=== PATIENT | male | born 1995 | race Caucasian/White ===

== ENCOUNTER 2017-08-12 07:38 | Emergency (ER) | payer OTHER ==
[2017-08-12] MEDS ORDERED: NS 0.9% 1000 ML* 1,000 ML IV ONE (07:49)
[2017-08-12 08:20] LABS: Mean Corpuscular HGB Conc 35 g/dl (31-36)
[2017-08-12 08:25] LABS: Hematocrit 48 % (42-52); Hemoglobin 16.9 g/dl (14.0-18.0); Mean Corpuscular Hemoglobin 30 pg (27-31); Mean Corpuscular Volume 86 fL (80-94); Mean Platelet Volume 9 um3 (7.4-10.4); Red Blood Count 5.61 10^6/ul (4.0-5.4); Red Cell Distribution Width 13 % (10.5-15); White Blood Count 10.2 10^3/ul (3.5-10.8)
[2017-08-12 08:26] LABS: Comments Flag Yes
[2017-08-12 08:37] LABS: Albumin 4.6 g/dL (3.2-5.2); BUN/Creatinine Ratio 14.4 (8-20); C Reactive Protein 6.46 mg/L (< 5.00); Calcium 9.9 mg/dL (8.6-10.3); EGFR African American 115.9 (>60); EGFR Non-African American 90.2 (>60); Globulin 2.4 g/dL (2-4); Potassium 3.9 mmol/L (3.5-5.0); Total Bilirubin 0.8 mg/dL (0.2-1.0)
[2017-08-12] MEDS ORDERED: Acetaminophen TAB* 325 MG PO ONE (10:05)
[2017-08-12 10:24] LABS: Urine Bilirubin Negative (Negative); Urine Glucose Negative (Negative); Urine Nitrite Negative (Negative)
[2017-08-12] MEDS ORDERED: Iohexol 300* (CONTRAST) 10 ML SDV IV ONE (12:15)
--- NOTE | 2017-08-12 13:03 | RAD ---
INDICATION: 21-year-old with abdominal pain pain. Diarrhea and vomiting for 18 hours. COMPARISON: None TECHNIQUE: Axial source images were obtained from the hemidiaphragms to the symphysis pubis following administration of oral and intravenous contrast. 100 mL Omnipaque 300 was utilized. Coronal and sagittal reconstructed images were acquired. Lung bases: The lung bases are clear. Liver: There is mild hepatomegaly with hepatic steatosis. There are no masses. There is no ductal dilatation. Gallbladder: There are no calcified gallstones. There is no evidence of wall thickening or pericholecystic fluid. Spleen: The spleen is normal in size. There are no masses. Pancreas: There is no focal pancreatic mass or ductal dilatation. Adrenal glands: There is no evidence of adrenal mass. Kidneys: The kidneys are normal in size and position. There are prompt nephrograms and there is prompt excretion bilaterally. There are no renal parenchymal masses. There is no evidence of nephrolithiasis. Adenopathy: There is no evidence of adenopathy by size criteria. Fluid collections: There are no free or localized fluid collections. Vessels:There are no significant atherosclerotic changes involving the aorta. There is no focal aneurysm. The iliac vessels are normal in caliber. The IVC appears normal. GI tract: There are no acute CT bowel findings. There is no obstruction. The stomach and small bowel appear normal. The lower GI tract is normal. The cecum, ileocecal valve, and terminal ileum appear normal. The appendix is visualized and appear normal. Pelvic organs: The prostate and seminal vesicles appear normal Bladder: There are no bladder masses. Abdominal and pelvic soft tissues: The extraperitoneal abdominal and pelvic soft tissues appear normal.. Osseous structures: There are no acute osseous findings. Other: None IMPRESSION: HEPATIC STEATOSIS, OTHERWISE NEGATIVE.
--- NOTE | 2017-08-12 13:10 | ED ---
Abdominal Pain/Male - HPI Summary HPI Summary: aournd navel and along B/L lower ab - also moreso on the Rt then Lt/ Diarrhea. Pain and diarrhea started last night around 20:00 - tried eating crackers but made it worse. Denies nausea, vomiting. Ab pain feels "like a pulled muscle", cramping - pain is colicky. Has not tried anything for pain as he feels okay at the moment. Denies CP/sob, flank pain, dysuria, testicular pain/swelling. No sick contacts - History of Current Complaint Chief Complaint: EDAbdPain Stated Complaint: SHARP ABD PAIN Time Seen by Provider: 08/12/17 08:41 Hx Obtained From: Patient, Family/Installation Superintendent - mom Pain Intensity: 4 - Allergies/Home Medications Allergies/Adverse Reactions: Allergies Allergy/AdvReac Type Severity Reaction Status Date / Time Penicillins Allergy Severe Hives Verified 07/29/17 13:31 PMH/Surg Hx/FS Hx/Imm Hx Previously Healthy: Yes Endocrine/Hematology History: Denies: Hx Diabetes Cardiovascular History: Denies: Hx Hypertension, Hx Pacemaker/ICD History: Denies: Hx Renal Disease Sensory History: Denies: Hx Hearing Aid Psychiatric History: Denies: Hx Eating Disorder, Hx Panic Disorder, Hx of Violent Episodes Against Others - Immunization History Immunizations Up to Date: Yes Infectious Disease History: No Infectious Disease History: Denies: Traveled Outside the [place] in Last 30 Days - Family History Known Family History: Negative: Cardiac Disease, Hypertension, Diabetes - family history of seasonal allergies - Social History Alcohol Use: Occasionally Substance Use Type: Reports: None Smoking Status (MU): Current Some Day Smoker Type: Cigarettes, Smokeless Tobacco Physical Exam Vital Signs On Initial Exam: Initial Vitals Temp Pulse Resp BP Pulse Ox 98.5 F 88 20 110/71 99 08/12/17 07:44 08/12/17 07:44 08/12/17 07:44 08/12/17 07:44 08/12/17 07:44 Abdomen Description: Positive: No Organomegaly, Soft, Other: - Rt side of ab is TTP- RUQ, MID REGION, RLQ; LLQ is also TTP - no rebounding or referred pain; equivocal psoas/obturator. Negative: CVA Tenderness (R), CVA Tenderness (L), Distended, Guarding, Hernia @ Male Genital Exam: Positive: normal genitalia, no hernia. Negative: bleeding, epididymal tenderness, erythema, scrotum tenderness (R), scrotum tenderness (L) , testicular tenderness (R), testicular tenderness (L) Musculoskeletal: Positive: Normal, Strength/ROM Intact Neurological: Positive: Normal, Sensory/Motor Intact, Alert, Oriented to Person Place, Time, CN Intact II-III Psychiatric: Positive: Normal - Cam Coma Scale Coma Scale Total: 15 Diagnostics - Vital Signs Vital Signs Temp Pulse Resp BP Pulse Ox 08/12/17 12:10 98.7 F 69 16 101/62 98 08/12/17 09:45 100.6 F 96 17 97/65 97 08/12/17 08:32 72 99 08/12/17 08:30 97/45 08/12/17 07:44 98.5 F 88 20 110/71 99 - Laboratory Lab Results: Lab Results 08/12/17 08/12/17 08/12/17 Range/Units 08:06 08:06 08:06 WBC (3.5-10.8) 10^3/ul RBC (4.0-5.4) 10^6/ul Hgb (14.0-18.0) g/dl Hct (42-52) % MCV (80-94) fL MCH (27-31) pg MCHC (31-36) g/dl RDW (10.5-15) % Plt Count (150-450) 10^3/ul MPV (7.4-10.4) um3 Neut % (Auto) (38-83) % Lymph % (Auto) (25-47) % [place] % (Auto) (1-9) % Eos % (Auto) (0-6) % Baso % (Auto) (0-2) % Absolute Neuts (auto) (1.5-7.7) 10^3/ul Absolute Lymphs (auto) (1.0-4.8) 10^3/ul Absolute Monos (auto) (0-0.8) 10^3/ul Absolute Eos (auto) (0-0.6) 10^3/ul Absolute Basos (auto) (0-0.2) 10^3/ul Absolute Nucleated RBC 10^3/ul Nucleated RBC % INR (Anticoag Therapy) 0.94 (0.77-1.02) APTT 28.8 (26.0-36.3) seconds Sodium 134 (133-145) mmol/L Potassium 3.9 (3.5-5.0) mmol/L Chloride 102 (101-111) mmol/L Carbon Dioxide 22 (22-32) mmol/L Anion Gap 10 (2-11) mmol/L BUN 15 (6-24) mg/dL Creatinine 1.04 (0.67-1.17) mg/dL Est GFR ( Amer) 115.9 (>60) Est GFR (Non-Af Amer) 90.2 (>60) BUN/Creatinine Ratio 14.4 (8-20) Glucose 101 H (70-100) mg/dL Lactic Acid 1.6 (0.5-2.0) mmol/L Calcium 9.9 (8.6-10.3) mg/dL Total Bilirubin 0.80 (0.2-1.0) mg/dL AST 26 (13-39) U/L ALT 77 H (7-52) U/L Alkaline Phosphatase 99 (34-104) U/L C-Reactive Protein 6.46 H (< 5.00) mg/L Total Protein 7.0 (6.4-8.9) g/dL Albumin 4.6 (3.2-5.2) g/dL Globulin 2.4 (2-4) g/dL Albumin/Globulin Ratio 1.9 (1-3) Lipase 20 (11.0-82.0) U/L Urine Color Urine Appearance Urine pH (5-9) Ur Specific [place] (1.010-1.030) Urine Protein (Negative) Urine Ketones (Negative) Urine Blood (Negative) Urine Nitrate (Negative) Urine Bilirubin (Negative) Urine Urobilinogen (Negative) Ur Leukocyte Esterase (Negative) Urine Glucose (Negative) 08/12/17 08/12/17 Range/Units 08:06 08:45 WBC 10.2 (3.5-10.8) 10^3/ul RBC 5.61 H (4.0-5.4) 10^6/ul Hgb 16.9 (14.0-18.0) g/dl Hct 48 (42-52) % MCV 86 (80-94) fL MCH 30 (27-31) pg MCHC 35 (31-36) g/dl RDW 13 (10.5-15) % Plt Count 180 (150-450) 10^3/ul MPV 9 (7.4-10.4) um3 Neut % (Auto) 86.9 H (38-83) % Lymph % (Auto) 5.7 L (25-47) % [place] % (Auto) 6.2 (1-9) % Eos % (Auto) 0.8 (0-6) % Baso % (Auto) 0.4 (0-2) % Absolute Neuts (auto) 8.9 H (1.5-7.7) 10^3/ul Absolute Lymphs (auto) 0.6 L (1.0-4.8) 10^3/ul Absolute Monos (auto) 0.6 (0-0.8) 10^3/ul Absolute Eos (auto) 0.1 (0-0.6) 10^3/ul Absolute Basos (auto) 0 (0-0.2) 10^3/ul Absolute Nucleated RBC 0.01 10^3/ul Nucleated RBC % 0.1 INR (Anticoag Therapy) (0.77-1.02) APTT (26.0-36.3) seconds Sodium (133-145) mmol/L Potassium (3.5-5.0) mmol/L Chloride (101-111) mmol/L Carbon Dioxide (22-32) mmol/L Anion Gap (2-11) mmol/L BUN (6-24) mg/dL Creatinine (0.67-1.17) mg/dL Est GFR ( Amer) (>60) Est GFR (Non-Af Amer) (>60) BUN/Creatinine Ratio (8-20) Glucose (70-100) mg/dL Lactic Acid (0.5-2.0) mmol/L Calcium (8.6-10.3) mg/dL Total Bilirubin (0.2-1.0) mg/dL AST (13-39) U/L ALT (7-52) U/L Alkaline Phosphatase (34-104) U/L C-Reactive Protein (< 5.00) mg/L Total Protein (6.4-8.9) g/dL Albumin (3.2-5.2) g/dL Globulin (2-4) g/dL Albumin/Globulin Ratio (1-3) Lipase (11.0-82.0) U/L Urine Color Yellow Urine Appearance Clear Urine pH 5.0 (5-9) Ur Specific [place] 1.012 (1.010-1.030) Urine Protein Negative (Negative) Urine Ketones Negative (Negative) Urine Blood Negative (Negative) Urine Nitrate Negative (Negative) Urine Bilirubin Negative (Negative) Urine Urobilinogen Negative (Negative) Ur Leukocyte Esterase Negative (Negative) Urine Glucose Negative (Negative) Result Diagrams: 08/12/17 08:06 08/12/17 08:06 Lab Statement: Any lab studies that have been ordered have been reviewed, and results considered in the medical decision making process. Re-Evaluation - Re-Evaluation First Eval Change: Improved - pain and fever improved w/ tylenol Abdominal Pain Fem Course/Dx - Course Course Of Treatment: Pt here w/ abrupt onset ab discomfort with diarrhea last night - continued today so came here. Had 1 x vomiting after receiving IV contrast - no issues since and no nausea. Labs, vitals and CT scan are unremarkable for life threatening pathology. He does have mildly elevated ALT and hepatic steatosis - explained this is typically a chronic issues that may have been caused by unhealthy eating - encouraged f/u w/ PCP to discuss changes/ monitor LFT's and sx as well as provide further education about nutrition therapy for this condition. Danger s/sx of when to return to ED reviewed w/ pt and mom. Pt could not provide stool sample here but will try at home and f/u w/ PCP who may order cx's outpt. Encouraged hydration/rest. - Diagnoses Provider Diagnoses: Abdominal pain, Diarrhea Discharge - Discharge Plan Condition: Stable Disposition: HOME Patient Education Materials: Acute Abdominal Pain (ED), Acute Diarrhea (ED) Forms: *Work Release Referrals: Julien Casarez MD [Primary Care Provider] - Additional Instructions: Rest, hydrate with fluids (ie. water, gatorade, broth, etc) Advance diet as tolerated - jello, etc - then BRAT (Banana, Rice, Applesauce, [place]) You may use Zofran as needed for nausea - this has been sent to your pharmacy Follow-up with PCP this week - call today to schedule appointment *If you develop fever, chills, intractable abdominal pain, vomiting or diarrhea with symptoms of dehydration (ie. shortness of breath, increased heart rate, dry mouth, decreased urination, extreme fatigue/weakness), return to ED
[2017-08-12 13:46] VITALS: BP 104/53
== END 2017-08-12 13:50 | disposition home or self-care (01) ==
LOC: ED 07:38
DX: R10.9 Unspecified abdominal pain (principal); R19.7 Diarrhea, unspecified
CPT/HCPCS: 36415; 74177; 80053; 81003; 83605; 83690; 85025; 85610; 85730; 86140; 96374; 99282; A9270-GY; Q9967